=== PATIENT | male | born 1985 | race African-American/Black ===

== ENCOUNTER 2022-05-19 22:45 | Inpatient (IN) ==
[2022-05-19] MEDS ORDERED: SODIUM CHLORIDE 0.9% 1,000 ML IV STA (23:15)
[2022-05-19] MEDS ORDERED: ONDANSETRON 4 MG/2 ML VIAL IV ONE (23:16)
[2022-05-19] MEDS ORDERED: HYDROmorphone 1 MG/1 ML SYRINGE IV STA (23:16)
[2022-05-19] MEDS ORDERED: KETOROLAC 30 MG/1 ML VIAL IV STA (23:16)
[2022-05-20 00:21] LABS: Albumin 3.9 G/DL (3.4-5.0); Bilirubin,Total 1.1 MG/DL (0.20-1.00); Calcium 9.2 MG/DL (8.5-10.1); Osmolality,Calculated 271.2 MOS/KG (273-304); Potassium 3.9 MMOL/L (3.5-5.1)
[2022-05-20 00:44] LABS: Mucus,Urine Occasional /LPF (Occasional); RBC,Urine 1 /HPF (0-4); Uric Acid Crystals,Urine Moderate /HPF (<1)
[2022-05-20 00:46] LABS: Bilirubin,Urine Negative (Negative); Blood, Urine Moderate mg/dL (Negative); Glucose,Urine (UA) 500 mg/dL (Negative); Ketones,Urine Negative (Negative); Nitrite,Urine Negative (Negative); Protein,Urine Negative (Negative); Urine Appearance Clear (Clear); Urine Color Yellow (Yellow); Urine Urobilinogen 0.2 eU/dL (<2.0)
[2022-05-20 00:56] LABS: Basophils % 0.2 % (0.0-0.8); Hematocrit 42.5 VOL% (42.0-52.0); Hemoglobin 13.8 GM/DL (14.0-18.0); Immature Granulocytes % 0.4 %; Immature Granulocytes Absolute 0.05 #; Lymphocytes # 0.7 10*3/uL (1.4-4.0); Lymphocytes % 5.9 % (21.2-54.2); Mean Corpuscular HGB Conc 32.5 GM/DL (32-36); Mean Corpuscular Volume 84.2 FL (87-102); Mean Platelet Volume 10.4 FL (9.6-12.0); Monocytes # 0.8 10*3/uL (0.11-0.8); Monocytes % 6.6 % (1.7-12.7); Neutrophils % 86.9 % (38.7-73.9); Platelet Count 210 T/CUMM (130-400); Red Blood Count 5.05 MC/CUMM (3.8-5.5); White Blood Count 11.6 T/CUMM (4-12)
[2022-05-20] MEDS ORDERED: cefTRIAXone 1,000 MG in SODIUM CHLORIDE 0.9% 100 ML IV STA ×2 (01:12→04:12)
[2022-05-20] MEDS ORDERED: KETOROLAC 30 MG/1 ML VIAL IV PRN (01:23)
[2022-05-20] MEDS ORDERED: ACETAMINOPHEN 325 MG TABLET PO PRN (01:23)
[2022-05-20] MEDS ORDERED: GLUCAGON 1 MG VIAL IM PRN (01:23)
[2022-05-20] MEDS ORDERED: ONDANSETRON 4 MG/2 ML VIAL IV PRN (01:23)
[2022-05-20] MEDS ORDERED: DEXTROSE 10% 250 ML BAG IV PRN (01:29)
[2022-05-20] MEDS: SODIUM CHLORIDE 0.9% 1,000 ML IV SCH ×3 (03:00→17:51)
[2022-05-20] MEDS: HYDROmorphone 1 MG/1 ML SYRINGE IV PRN ×2 (04:43→21:13)
[2022-05-20 05:28] LABS: Basophils % 0.2 % (0.0-0.8); Eosinophils # 0.1 10*3/uL (0.0-0.87); Eosinophils % 0.5 % (0.00-10.9); Hematocrit 36.9 VOL% (42.0-52.0); Hemoglobin 12.3 GM/DL (14.0-18.0); Immature Granulocytes % 0.4 %; Immature Granulocytes Absolute 0.04 #; Lymphocytes # 1.8 10*3/uL (1.4-4.0); Lymphocytes % 16.7 % (21.2-54.2); Mean Corpuscular HGB Conc 33.3 GM/DL (32-36); Mean Corpuscular Volume 84.8 FL (87-102); Mean Platelet Volume 9.9 FL (9.6-12.0); Monocytes # 1.1 10*3/uL (0.11-0.8); Monocytes % 10.3 % (1.7-12.7); Neutrophils % 71.9 % (38.7-73.9); Platelet Count 193 T/CUMM (130-400); Red Blood Count 4.35 MC/CUMM (3.8-5.5); Red Cell Distribution Width 12.9 % (9.3-17.3); White Blood Count 10.8 T/CUMM (4-12)
[2022-05-20 06:20] LABS: Albumin 3.2 G/DL (3.4-5.0); Calcium 8.5 MG/DL (8.5-10.1); Osmolality,Calculated 279.7 MOS/KG (273-304); Potassium 3.4 MMOL/L (3.5-5.1); Total Protein 6.7 G/DL (6.4-8.2)
[2022-05-20] MEDS: PANTOPRAZOLE 40 MG VIAL IV SCH (08:07)
[2022-05-20] MEDS: INSULIN REGULAR 100 UNIT/ML SUBCUT SCH ×3 (08:09→18:37)
[2022-05-20] MEDS: TAMSULOSIN 0.4 MG CAPSULE PO SCH (21:12)
[2022-05-20] MEDS: glipiZIDE 5 MG TABLET PO SCH (21:12)
[2022-05-20] MEDS: SIMVASTATIN 40 MG TABLET PO SCH (21:12)
[2022-05-21] MEDS: cefTRIAXone 1,000 MG in SODIUM CHLORIDE 0.9% 100 ML IV SCH ×2 (00:40→23:20)
[2022-05-21] MEDS: KETOROLAC 30 MG/1 ML VIAL IV SCH ×5 (01:20→23:20)
[2022-05-21] MEDS: INSULIN REGULAR 100 UNIT/ML SUBCUT SCH ×4 (01:20→18:02)
[2022-05-21 06:02] LABS: Calcium 8.4 MG/DL (8.5-10.1); Osmolality,Calculated 279.1 MOS/KG (273-304); Potassium 3.6 MMOL/L (3.5-5.1)
[2022-05-21] MEDS: SODIUM CHLORIDE 0.9% 1,000 ML IV SCH ×3 (06:02→18:01)
[2022-05-21] MEDS: PANTOPRAZOLE 40 MG VIAL IV SCH (08:25)
[2022-05-21] MEDS: HYDROmorphone 1 MG/1 ML SYRINGE IV PRN ×3 (08:28→20:42)
[2022-05-21] MEDS: POTASSIUM CHLORIDE 20 MEQ TABLET PO SCH (08:39)
[2022-05-21] MEDS: TAMSULOSIN 0.4 MG CAPSULE PO SCH ×2 (08:39→20:42)
[2022-05-21] MEDS: glipiZIDE 5 MG TABLET PO SCH ×2 (08:40→20:42)
[2022-05-21] MEDS ORDERED: MAGNESIUM HYDROXIDE SUSP 30 ML UDCUP PO ONE (12:35)
[2022-05-21] MEDS ORDERED: MAGNESIUM HYDROXIDE SUSP 30 ML UDCUP PO PRN (12:35)
[2022-05-21] MEDS: SIMVASTATIN 40 MG TABLET PO SCH (20:42)
[2022-05-22] MEDS: INSULIN REGULAR 100 UNIT/ML SUBCUT SCH ×4 (03:11→17:16)
[2022-05-22] MEDS: SODIUM CHLORIDE 0.9% 1,000 ML IV SCH ×4 (03:15→16:50)
[2022-05-22] MEDS: HYDROmorphone 1 MG/1 ML SYRINGE IV PRN ×2 (03:16→20:53)
[2022-05-22] MEDS: KETOROLAC 30 MG/1 ML VIAL IV SCH ×3 (05:31→16:43)
[2022-05-22 07:05] LABS: Osmolality,Calculated 279.3 MOS/KG (273-304); Potassium 3.6 MMOL/L (3.5-5.1)
[2022-05-22] MEDS: POTASSIUM CHLORIDE 20 MEQ TABLET PO SCH (08:50)
[2022-05-22] MEDS: PANTOPRAZOLE 40 MG VIAL IV SCH (08:50)
[2022-05-22] MEDS: TAMSULOSIN 0.4 MG CAPSULE PO SCH ×2 (08:50→20:50)
[2022-05-22] MEDS: glipiZIDE 5 MG TABLET PO SCH ×2 (08:50→20:50)
[2022-05-22] MEDS: SIMVASTATIN 40 MG TABLET PO SCH (20:50)
[2022-05-23] MEDS: KETOROLAC 30 MG/1 ML VIAL IV SCH ×2 (01:07→06:58)
[2022-05-23] MEDS: cefTRIAXone 1,000 MG in SODIUM CHLORIDE 0.9% 100 ML IV SCH ×2 (01:10→23:51)
[2022-05-23] MEDS: INSULIN REGULAR 100 UNIT/ML SUBCUT SCH ×4 (03:03→16:59)
[2022-05-23 05:04] LABS: Basophils % 0.2 % (0.0-0.8); Eosinophils # 0.1 10*3/uL (0.0-0.87); Eosinophils % 1.5 % (0.00-10.9); Hematocrit 37.4 VOL% (42.0-52.0); Hemoglobin 12.7 GM/DL (14.0-18.0); Immature Granulocytes % 0.1 %; Immature Granulocytes Absolute 0.01 #; Lymphocytes # 2.2 10*3/uL (1.4-4.0); Lymphocytes % 25.9 % (21.2-54.2); Mean Corpuscular Volume 82.2 FL (87-102); Mean Platelet Volume 9.8 FL (9.6-12.0); Monocytes # 0.8 10*3/uL (0.11-0.8); Monocytes % 8.9 % (1.7-12.7); Neutrophils % 63.4 % (38.7-73.9); Platelet Count 185 T/CUMM (130-400); Red Blood Count 4.55 MC/CUMM (3.8-5.5); Red Cell Distribution Width 12.4 % (9.3-17.3); White Blood Count 8.53 T/CUMM (4-12)
[2022-05-23 05:26] LABS: Calcium 8.8 MG/DL (8.5-10.1); Osmolality,Calculated 279.3 MOS/KG (273-304); Potassium 3.7 MMOL/L (3.5-5.1)
[2022-05-23] MEDS ORDERED: cefTRIAXone 1,000 MG in SODIUM CHLORIDE 0.9% 100 ML IV ONE (06:00)
[2022-05-23] MEDS: SODIUM CHLORIDE 0.9% 1,000 ML IV SCH ×5 (06:40→22:31)
[2022-05-23] MEDS: POTASSIUM CHLORIDE 20 MEQ TABLET PO SCH (09:37)
[2022-05-23] MEDS: TAMSULOSIN 0.4 MG CAPSULE PO SCH ×2 (09:37→21:02)
[2022-05-23] MEDS: glipiZIDE 5 MG TABLET PO SCH ×2 (09:37→21:02)
[2022-05-23] MEDS: PANTOPRAZOLE 40 MG VIAL IV SCH (09:40)
[2022-05-23] MEDS ORDERED: fentaNYL 100 MCG/2 ML VIAL ONE (12:19)
[2022-05-23] MEDS ORDERED: MIDAZOLAM 2 MG/2 ML VIAL ONE (12:47)
[2022-05-23] MEDS ORDERED: SEVOFLURANE 1 UNIT/15 MINUTE INH ONE (13:36)
[2022-05-23] MEDS ORDERED: LIDOCAINE 2% 5 ML VIAL ONE (13:36)
[2022-05-23] MEDS ORDERED: ONDANSETRON 4 MG/2 ML VIAL ONE (13:36)
[2022-05-23] MEDS ORDERED: propofoL 200 MG/20 ML VIAL IV ONE (13:36)
[2022-05-23] MEDS: HYDROmorphone 1 MG/1 ML SYRINGE IV PRN ×2 (17:09→21:37)
[2022-05-23] MEDS: SIMVASTATIN 40 MG TABLET PO SCH (21:02)
[2022-05-24] MEDS: INSULIN REGULAR 100 UNIT/ML SUBCUT SCH ×3 (00:24→12:07)
[2022-05-24] MEDS: SODIUM CHLORIDE 0.9% 1,000 ML IV SCH ×3 (01:22→10:16)
[2022-05-24] MEDS: HYDROmorphone 1 MG/1 ML SYRINGE IV PRN ×2 (04:20→10:15)
[2022-05-24 07:51] LABS: Basophils % 0.2 % (0.0-0.8); Eosinophils # 0.1 10*3/uL (0.0-0.87); Eosinophils % 2.2 % (0.00-10.9); Hematocrit 35.9 VOL% (42.0-52.0); Hemoglobin 12.3 GM/DL (14.0-18.0); Immature Granulocytes % 0.2 %; Immature Granulocytes Absolute 0.01 #; Lymphocytes # 1.8 10*3/uL (1.4-4.0); Lymphocytes % 28.1 % (21.2-54.2); Mean Corpuscular HGB Conc 34.3 GM/DL (32-36); Mean Corpuscular Volume 82.2 FL (87-102); Mean Platelet Volume 9.9 FL (9.6-12.0); Monocytes # 0.5 10*3/uL (0.11-0.8); Neutrophils % 61.3 % (38.7-73.9); Platelet Count 191 T/CUMM (130-400); Red Blood Count 4.37 MC/CUMM (3.8-5.5); Red Cell Distribution Width 12.7 % (9.3-17.3); White Blood Count 6.37 T/CUMM (4-12)
[2022-05-24 08:07] LABS: Calcium 8.5 MG/DL (8.5-10.1); Osmolality,Calculated 285.4 MOS/KG (273-304); Potassium 3.8 MMOL/L (3.5-5.1)
[2022-05-24] MEDS: glipiZIDE 5 MG TABLET PO SCH (08:37)
[2022-05-24] MEDS: POTASSIUM CHLORIDE 20 MEQ TABLET PO SCH (08:37)
[2022-05-24] MEDS: TAMSULOSIN 0.4 MG CAPSULE PO SCH (08:38)
[2022-05-24] MEDS: PANTOPRAZOLE 40 MG VIAL IV SCH (08:38)
[2022-05-24 12:34] VITALS: BP 148/96
== END 2022-05-24 13:50 | disposition home or self-care (01) | DRG 661 ==
LOC: N.ED 22:45 → N.EDINP 22:45 → N.2W 05-20 03:09
PROVIDERS: ADMIT Family Medicine; ATTEND Family Medicine